=== PATIENT | female | born 1980 | race Caucasian/White ===

== ENCOUNTER 2016-10-12 21:15 | Emergency (ER) | payer OTHER ==
--- NOTE | 2016-10-12 21:19 | PDOC ---
History of Present Illness - General History Source: Patient Exam Limitations: No Limitations - History of Present Illness Initial Comments: 10/12/16 21:36 The patient is a 35 year old female with no significant past medical history, who presents to the ED s/p fall. Patient tripped over a cast iron so in her basement and fell. She braced her fall with her left arm and is now complaining of left wrist pain. She denies head trauma, neck pain, back pain. She denies nausea, vomiting, diarrhea. Patient is otherwise healthy and has no other complaints. <Darnell Isaacs - Last Filed: 10/12/16 21:36> <Kari Herndon - Last Filed: 10/13/16 03:43> - General Chief Complaint: Injury Stated Complaint: TRIPPED AND FELL, WRIST INJURY Time Seen by Provider: 10/12/16 21:19 Past History <Darnell Isaacs - Last Filed: 10/12/16 21:36> <Kari Herndon - Last Filed: 10/13/16 03:43> - Past Medical History Allergies/Adverse Reactions: Allergies Allergy/AdvReac Type Severity Reaction Status Date / Time No Known Allergies Allergy Verified 10/12/16 21:17 Home Medications: Ambulatory Orders Oxycodone HCl/Acetaminophen [Percocet 5-325 mg Tablet] 1 tab PO Q6H PRN #10 tablet MDD 3 tabs 10/12/16 Review of Systems - Review of Systems Able to Perform ROS?: Yes Comments:: 10/12/16 21:36 GENERAL/CONSTITUTIONAL: No fever or chills. No weakness. HEAD, EYES, EARS, NOSE AND THROAT: No change in vision. No ear pain or discharge. No sore throat. CARDIOVASCULAR: No chest pain or shortness of breath. RESPIRATORY: No cough, wheezing, or hemoptysis. GASTROINTESTINAL: No nausea, vomiting, diarrhea or constipation. GENITOURINARY: No dysuria, frequency, or change in urination. MUSCULOSKELETAL: + left wrist pain. No muscle swelling. No neck or back pain. SKIN: No rash NEUROLOGIC: No headache, vertigo, loss of consciousness, or change in strength/ sensation. ENDOCRINE: No increased thirst. No abnormal weight change. HEMATOLOGIC/LYMPHATIC: No anemia, easy bleeding, or history of blood clots. ALLERGIC/IMMUNOLOGIC: No hives or skin allergy. <Darnell Isaacs - Last Filed: 10/12/16 21:36> *Physical Exam - Vital Signs Last Vital Signs Temp Pulse Resp BP Pulse Ox 97.9 F 85 16 151/90 98 10/12/16 21:18 10/12/16 21:18 10/12/16 21:18 10/12/16 21:18 10/12/16 21:18 - Physical Exam Comments: 10/12/16 21:36 General: Patient is alert and in no acute distress. Speech is clear and appropriate. Head: Atraumatic and nontender. HEENT: Pupils are equal round and reactive to light, extraocular movements are intact. The tympanic membranes are clear, no hemotympanum. No facial deformity/tenderness, no septal hematoma. The oropharynx is clear. Neck: The trachea is midline, there is no stridor. There is no midline cervical spine tenderness, full range of motion of neck. Chest: Nontender, no ecchymosis or abrasions. Heart: S1-S2, regular rate and rhythm. No murmurs. Lungs: Clear to auscultation bilaterally. Symmetric chest rise. Abdomen: Soft/nontender/nondistended. Bowel sounds are normal. There is no abdominal or flank ecchymosis. Back/Pelvis: There is no midline spine tenderness or step-off. Pelvis is stable and nontender. Extremities: Moderate edema mild deformity of the dorsum of the wrist. Remainder of forearm is normal. Pulse is in tact. Radio pulses is palpable at the wrist. Rest of extremities is normal. Neuro: Alert and oriented x3. Cranial nerves II through XII are intact. 5 out of 5 motor strength x4 extremities. Finger-nose- finger is intact. No pronator drift. Gait is stable. Skin: No abrasions/hematomas/lacerations. Psych: Affect is appropriate. <Darnell Isaacs - Last Filed: 10/12/16 21:36> ED Treatment Course - ADDITIONAL ORDERS Additional order review: Laboratory Results 10/12/16 21:30 Urine HCG, Qual Negative <Darnell Isaacs - Last Filed: 10/12/16 21:36> Progress Note - Progress Note Progress Note: Documentation has been prepared under my direction and personally reviewed by me in its entirety. I attest that this documented accurately reflects all work, treatment, procedures and medical decision making performed by me. <Kari Herndon - Last Filed: 10/13/16 03:43> Medical Decision Making - Medical Decision Making As noted above, this 35-year-old woman presents with acute injury to her left wrist area, sustained when she tripped over a so in her basement.. Exam reveals mild deformity/edema and point tenderness in the distal forearm No evidence of neurovascular deficit distal to the area of the injury.. Wrist x-ray reveals a mildly displaced distal radius fracture. Ulnar styloid is intact as is the rest of the ulna bone. No other obvious fracture/ dislocation evident. Results discussed with the patient. Charm splint fashioned from Ortho-Glass material and secured with Rl wraps. Neurovascular functioning intact after placement of the splint. Sling applied. Patient will be discharged with instructions to keep the splint in place. Sling should be used when patient is up and around ; area of fracture should be at heart level or above as much as possible. Patient should continue to use ice to the area of fracture for at least another 24 hours. Patient does not have an orthopedist. She will be given referral information for the [facility] orthopedic group. Patient asked for strong pain medication as needed over the next few days. Prescription for Percocet 5/325 (#10) will be transmitted to her pharmacy. Patient should return to the emergency room if she has persistent pain or numbness in the hand <Kari Herndon - Last Filed: 10/13/16 03:43> *DC/Admit/Observation/Transfer - Attestations Scribe Attestion: 10/12/16 21:37 Documentation prepared by Darnell Isaacs, acting as medical secretary for Kari Herndon MD. <Darnell Isaacs - Last Filed: 10/12/16 21:36> <Kari Herndon - Last Filed: 10/13/16 03:43> Diagnosis at time of Disposition: Radius distal fracture Qualifiers: Encounter type: initial encounter Fracture type: closed Fracture morphology: Colles' Laterality: left Qualified Code(s): S52.532A - Colles' fracture of left radius, initial encounter for closed fracture - Discharge Dispostion Disposition: HOME Condition at time of disposition: Stable - Prescriptions Prescriptions: Oxycodone HCl/Acetaminophen [Percocet 5-325 mg Tablet] 1 tab PO Q6H PRN #10 tablet MDD 3 tabs PRN Reason: Severe Pain - Referrals Referrals: Marcio Vazquez MD [Staff Physician] - 2 Days - Patient Instructions Printed Discharge Instructions: DI for Distal Radius Fracture Additional Instructions: Keep splint in place Ice/elevation as much as possible for the next 2 days Sling when up and around Motrin/Tylenol/Aleve as needed for [id number] pain Percocet 5/325 up to 3 times a day as needed for severe pain Follow-up with /Dr. Davenport within 2-3 days (call office Thursday a.m.) Return to ER if you have severe, persistent pain
[2016-10-12 21:22] VITALS: BP 151/90; PULSE 85; TEMP 97.9; BMI 27.4
[2016-10-12] MEDS ORDERED: OXYCODONE/APAP 5/325MG COMBO TABLET PO ONE (22:19)
[2016-10-12] MEDS ORDERED: OXYCODONE/APAP 5/325MG COMBO TABLET ONE (22:20)
== END 2016-10-12 22:27 | disposition home or self-care (01) ==
LOC: FER 21:15
PROC: 2W3FX1Z Immobilization of Left Hand using Splint (ICD-10-PCS; principal; 2016-10-12)
DX: S52.532A Colles' fracture of left radius, initial encounter for closed fracture (principal); W18.39XA Other fall on same level, initial encounter; Y93.89 Activity, other specified; Y92.008 Other place in unspecified non-institutional (private) residence as the place of occurrence of the external cause
CPT/HCPCS: 73110-TC-LT; 84703; 99281-25